=== PATIENT | female | born 1970 | race Caucasian/White ===

== ENCOUNTER 2018-09-03 08:23 | Day surgery (SDC) | payer BC, SELFPAY ==
[2018-09-03 08:39] VITALS: BP 103/81; PULSE 92; RESP 14; TEMP 36.6; O2SAT 97; BMI 25.9
[2018-09-03 09:50] VITALS: BP 103/81; BP 96/61; PULSE 78; RESP 16; TEMP 36.2; O2SAT 99
--- NOTE | 2018-09-03 09:53 | OP.ENDO_ITS ---
Patient Name: Shanna Kaur Procedure Date: 09/03/2018 9:15 AM Date of : 1970 Age: 48 Procedure: Colonoscopy Indications: High risk colon cancer surveillance: Personal history of colonic polyps Providers: Vitor Lee MD Referring MD: Simi Ray Medicines: See the Anesthesia note for documentation of the administered medications Patient Profile: This is a 48 year old female. Refer to note in patient chart for documentation of history and physical. Last Colonoscopy: 10 years ago. Complications: No immediate complications. Procedure: Pre-Anesthesia Assessment: - Prior to the procedure, a History and Physical was performed, and patient medications and allergies were reviewed. The patient's tolerance of previous anesthesia was also reviewed. The risks and benefits of the procedure and the sedation options and risks were discussed with the patient. All questions were answered, and informed consent was obtained. Prior Anticoagulants: The patient has taken no previous anticoagulant or antiplatelet agents. ASA Grade Assessment: II - A patient with mild systemic disease. After reviewing the risks and benefits, the patient was deemed in satisfactory condition to undergo the procedure. After I obtained informed consent, the scope was passed under direct vision. Throughout the procedure, the patient's blood pressure, pulse, and oxygen saturations were monitored continuously. The adult colonoscope was introduced through the anus and advanced to the cecum, identified by appendiceal orifice and ileocecal valve. The colonoscopy was performed without difficulty. The patient tolerated the procedure well. The quality of the bowel preparation was good. Scope In: 9:29:27 AM Scope Withdrawal Time 0 hours 6 minutes 17 seconds Scope Out: 9:45:28 AM Total Procedure Duration Time 0 hours 16 minutes 1 second Findings: Non-bleeding internal hemorrhoids were found during retroflexion. The hemorrhoids were mild and small. A few small-mouthed diverticula were found in the sigmoid colon. The exam was otherwise without abnormality. Impression: - Non-bleeding internal hemorrhoids. - Diverticulosis in the sigmoid colon. - The examination was otherwise normal. - No specimens collected. Recommendation: - Discharge patient to home. - Resume previous diet. - Continue present medications. - Repeat colonoscopy in 10 years for screening purposes. - Return to primary care physician PRN. Procedure Code(s): --- Professional --- 39590, Colonoscopy, flexible; diagnostic, including collection of specimen(s) by brushing or washing, when performed (separate procedure) Diagnosis Code(s): --- Professional --- Z86.010, Personal history of colonic polyps K64.8, Other hemorrhoids K57.30, Diverticulosis of large intestine without perforation or abscess without bleeding CPT copyright 2017 [employer]. All rights reserved. The codes documented in this report are preliminary and upon social work case manager review may be revised to meet current compliance requirements. MD Vitor Simmons MD 09/03/2018 9:52:27 AM This report has been signed electronically. Number of Addenda: 0 Note Initiated On: 09/03/2018 9:15 AM
--- NOTE | 2018-09-03 09:54 | PCM.HP.STD ---
Problem List (1) Personal history of colonic polyps Status: Acute History of Present Illness Date of Admission: 09/03/18 The patient is a 48 year old F with a history of colonic polyps who presents for a colonoscopy. Past Medical History Allergies No Known Allergies Allergy (Verified 09/02/18 09:15) Home Medications: Ambulatory Orders Medication Instructions Recorded Duloxetine Hcl [Cymbalta] 60 mg PO DAILY 06/20/15 Cholecalciferol (Vitamin D3) 5,000 unit PO DAILY 09/02/18 [Vitamin D3] Levothyroxine Sodium [Levoxyl] 50 mcg PO DAILY 09/02/18 Smoking Status: Never smoker Tobacco Use: Non-smoker - *Family History Maternal History Items: No pertinent history Review of Systems Cardiovascular: Denies: Chest Pain, Chest Pressure, Chest Tightness, Palpitations Respiratory: Denies: Cough, Hemoptysis, Shortness of breath at rest, Shortness of breath upon exertion, Wheezing Gastrointestinal: Denies: Abdominal Pain, Constipation, Diarrhea, Hematemesis, Nausea, Melena, Vomiting VTE Information - Inpt Only VTE Present on Admission: No VTE Mechan Device Prophylaxis: None VTE Pharm Prophylaxis ordered?: No Reason prophylaxis not ordered:: Treatment Not Indicated Patient Problems: Active and Suspected Problems Personal history of colonic polyps (Acute) - Physical Exam General: Alert, Oriented x3 Lungs: Clear to auscultation Cardiovascular: Regular rate, Regular Rhythm, No murmurs Abdomen: Bowel Sounds Present, Soft, Non Tender, Non-Distended Vital Signs Temp Pulse Resp BP Pulse Ox 97.2 F L 78 16 96/61 99 09/03/18 09:50 09/03/18 09:50 09/03/18 09:50 09/03/18 09:50 09/03/18 09:50 Oxygen Delivery Method Room Air Weight: 137 lb 2.04 oz Body Mass Index (BMI) 25.9 Assessment/Plan All Active Problems Personal history of colonic polyps (Acute) And will be to perform a colonoscopy on the patient.
[2018-09-03 09:55] VITALS: BP 103/81; BP 99/63; PULSE 78; RESP 16; O2SAT 98
[2018-09-03 10:00] VITALS: BP 100/65; BP 103/81; PULSE 72; RESP 16; O2SAT 99
[2018-09-03 10:08] VITALS: BP 103/81; BP 96/64; PULSE 74; RESP 16; TEMP 36.9; O2SAT 100
[2018-09-03 10:28] VITALS: BP 103/81
== END 2018-09-03 10:35 | disposition home or self-care (01) ==
LOC: EN 08:23 → AC 08:26
PROVIDERS: Family Provider Internal Medicine; PCP Internal Medicine; Referring Provider Surgery; Visit Provider Surgery
PROC: 0DJD8ZZ Inspection of Lower Intestinal Tract, Via Natural or Artificial Opening Endoscopic (ICD-10-PCS; CPT 45378; principal; 2018-09-03 09:25)
DX: K64.8 Other hemorrhoids (principal); K57.30 Diverticulosis of large intestine without perforation or abscess without bleeding; Z86.010 Personal history of colon polyps; F32.9 Major depressive disorder, single episode, unspecified; E06.9 Thyroiditis, unspecified; I49.3 Ventricular premature depolarization; Z79.899 Other long term (current) drug therapy
CPT/HCPCS: 45378; J7120; J1610

== ENCOUNTER → 2019-02-19 08:42 | Outpatient (CLI) | payer BC, SELFPAY ==
--- NOTE | 2019-02-19 08:45 | BI_ITS ---
MAMMOGRAPHY - BILATERAL SCREENING REASON FOR EXAM: Female, 49 years old. Routine annual screening examination. PERTINENT HISTORY: Bilateral breast tenderness. TECHNIQUE: Digital bilateral breast eber (3D mammographic acquisition) in the CC and MLO projections. 2-D mediolateral oblique (MLO) and craniocaudad (CC) views of both breasts were obtained. CAD: Full Field Digital Mammography with Computer Added Detection was performed. COMPARISON: Comparison is made with prior study dated April 01, 2017 and March 26, 2016. FINDINGS: Breast Composition: There are scattered areas of fibroglandular density. There are no dominant masses or suspicious calcifications. Benign-appearing small bilateral axillary lymph nodes. No other significant abnormalities are identified. There has been no significant change since the prior study. BI/SCREEN MAMM (CAD) W/EBER BILAT IMPRESSION: Stable bilateral screening mammogram. Yearly follow-up mammogram recommended. (A) ASSESSMENT CATEGORY: BIRADS Category 2: Benign. A letter regarding these results will be sent to the patient by the facility within 30 days. Approximately 10% of breast cancers are not detected by mammography. A normal mammogram should not delay biopsy of a clinically suspicious abnormality. [id number] Electronically Signed: Noah Tucker, at 8:57 EDT , Service support ,
== END ==
PROVIDERS: Family Provider Internal Medicine; PCP Internal Medicine; Referring Provider Internal Medicine; Visit Provider Internal Medicine
DX: Z12.31 Encounter for screening mammogram for malignant neoplasm of breast (principal)
CPT/HCPCS: 77063; 77067

== ENCOUNTER → 2020-09-04 12:38 | Outpatient (CLI) | payer BC, SELFPAY ==
--- NOTE | 2020-09-04 12:40 | BI_ITS ---
MAMMOGRAPHY - BILATERAL SCREENING REASON FOR EXAM: Female, 50 years old. Routine annual screening examination. PERTINENT HISTORY: Non-contributory. TECHNIQUE: Digital bilateral breast eber (3D mammographic acquisition) in the CC and MLO projections. 2-D mediolateral oblique (MLO) and craniocaudad (CC) views of both breasts were obtained. CAD: Full Field Digital Mammography with Computer Added Detection was performed. COMPARISON: Comparison is made with prior study dated 02/19/2019 and 04/01/2017. FINDINGS: Breast Composition: There are scattered areas of fibroglandular density. There are no dominant masses or suspicious calcifications. Stable small benign-appearing bilateral axillary lymph nodes. No other significant abnormalities are identified. There has been no significant change since the prior study. BI/SCREEN MAMM (CAD) W/EBER BILAT IMPRESSION: Stable bilateral screening mammogram. Yearly follow-up mammogram recommended. (A) ASSESSMENT CATEGORY: BIRADS Category 2: Benign. A letter regarding these results will be sent to the patient by the facility within 30 days. Approximately 10% of breast cancers are not detected by mammography. A normal mammogram should not delay biopsy of a clinically suspicious abnormality. [id number] Electronically Signed: Noah Tucker, at 9:09 EST , Service support ,
== END ==
PROVIDERS: PCP Internal Medicine; Referring Provider Internal Medicine; Visit Provider Internal Medicine
DX: Z12.31 Encounter for screening mammogram for malignant neoplasm of breast (principal)
CPT/HCPCS: 77063; 77067

== ENCOUNTER 2021-09-02 15:48 | Emergency (ER) | payer BC, SELFPAY ==
[2021-09-02] VITALS (7 sets, daily range): BP systolic 105–126; BP diastolic 64–79; PULSE 101–119; RESP 16–21; TEMP 35.9–38.4; O2SAT 94–97; BMI 27.6
--- NOTE | 2021-09-02 17:21 | CT_ITS ---
STUDY: CT Abdomen And Pelvis W/ Contrast Injection 09/02/2021 7:53 PM REASON FOR EXAM: Female, 51 years old. ABDOMINAL PAIN post-op fever -- IV PO Contrast TECHNIQUE: Transaxial images were obtained with oral contrast, and with Oral and amp; IV Gastrografin and amp; 100mL Isovue-370 intravenous contrast. Individualized dose optimization techniques were used for this CT. COMPARISON: None. FINDINGS: The visualized lung bases are unremarkable. The visualized portions of the heart are within normal limits. Normal liver. Normal gallbladder and extrahepatic biliary system. Normal spleen. Normal pancreas. Normal bilateral adrenal glands. No acute findings of the right kidney. No acute findings of the left kidney. There is a small hiatal hernia. Normal small intestine. Stool throughout the colon. There is non-visualization of the appendix. There are no acute findings of the abdominal aorta. Normal inferior vena cava. Subcentimeter mesenteric lymph nodes. Normal urinary bladder. Subcutaneous air suggesting recent surgery. The distribution suggests reconstructive surgery. Soft tissue seroma or hematoma overlying the anterior abdominal wall. Normal osseous structures. IMPRESSION: (NOT LISTED IN ORDER OF SIGNIFICANCE) Soft tissue seroma or hematoma overlying the anterior abdominal wall. There are no acute findings. Other findings as above. Electronically Signed: Seven Dumont MD at 19:58 EST , Service support , CT/Abdomen/Pelvis WITH Contrast
--- NOTE | 2021-09-02 17:23 | EDS_ITS ---
HPI History of Present Illness Chief Complaint: Fever Informant: patient Onset/Context/Timing Onset: Days Current Severity: Moderate Maximum Severity: Moderate Narrative Narrative: Patient presents secondary to continued fever and fatigue. She had surgery on August 23 having a tummy tuck performed at [facility]. 2 days later she started to feel ill including lethargy and fevers. Her highest temperature has been 104.0. She states she was on a skin antibiotic after surgery. On the she was seen by her surgeon where her drains were removed. That afternoon she was seen at the [facility] in [place]. Chest x-ray and lab work done at that time. She was switched to Augmentin. In spite of that she continues to have fever. She has noted increased drainage from her wound over the past 3 days. She called her surgeon today who wants to see her in the office tomorrow. [facility] Medical History Hypothyroid Home Medications duloxetine 60 mg PO DAILY 06/20/15 [History Last Taken Unknown] cholecalciferol (vitamin D3) 5,000 unit PO DAILY 09/02/18 [History Last Taken Unknown] levothyroxine [Levoxyl] 50 mcg PO DAILY 09/02/18 [History Last Taken Unknown] amoxicillin-pot clavulanate 1 tab PO BID 09/02/21 [History Last Taken Unknown] ferrous sulfate [FeroSul] 325 mg PO DAILY 09/02/21 [History Last Taken Unknown] Allergy/AdvReac Type Severity Reaction Status Date / Time No Known Allergies Allergy Verified 09/02/21 15:49 Social History Smoking Status: Never smoker ROS ROS ED Constitutional Constitutional ED: Reports chills and fever(s) Eyes Eyes: Denies change in vision ENT ENT ED: Denies sore throat Cardiovascular Cardiovascular: Denies chest pain Respiratory/Chest Respiratory/Chest: Reports cough; Denies dyspnea Gastrointestinal Gastrointestinal: Reports abdominal pain; Denies diarrhea, nausea or vomiting Genitourinary Genitourinary ED: Denies dysuria Musculoskeletal Musculoskeletal: Denies back pain Integumentary Reports other Details: Drainage from surgical wound ; Denies rash Neurologic Neurologic: Denies headache(s) or weakness Allergic/Immunologic Allergic/Immunologic ED: Denies urticaria EXAM Physical Exam Const Vital Signs: 09/02/21 15:49 09/02/21 17:22 09/02/21 17:24 Temperature 96.6 F L 97.8 F Temperature Source Temporal Temporal Pulse Rate 106 H 109 H 107 H Respiratory Rate 16 16 16 Respiratory Effort Normal Non-Labored Respiratory Pattern Normal Blood Pressure 121/72 H 112/79 117/72 Blood Pressure Mean 88 90 87 Pulse Ox 97 97 Oxygen Delivery Method Room Air Room Air Room Air 09/02/21 18:00 09/02/21 19:00 09/02/21 21:00 Temperature 97.8 F 101.1 F H 99.3 F H Temperature Source Temporal Oral Oral Pulse Rate 105 H 119 H 105 H Respiratory Rate 21 H 16 16 Respiratory Effort Respiratory Pattern Blood Pressure 116/78 126/72 H 105/64 Blood Pressure Mean 90 90 77 Pulse Ox 97 96 94 Oxygen Delivery Method Room Air Room Air Room Air Positive well nourished and well developed General Appearance ED: well developed HEENT Reports moist mucous membranes Eyes PERRL and EOMs intact bilaterally Neck supple Chest Wall inspection of chest normal and palpation of chest normal Resp normal respiratory effort and clear to auscultation bilaterally Cardio Rate: tachycardic GI GI Narrative: Lower abdominal wounds with surrounding cellulitis. Mild drainage. Extremity normal to inspection Neuro oriented x3 Sensorium / Orientation: alert MDM MDM MDM Narrative Medical decision making narrative: Lab work, cultures, urinalysis, Covid PCR obtained. CT scan with IV contrast ordered. Lab Data Attestation: I reviewed the patient's lab results. Labs: Laboratory Results - last 24 hr 09/02/21 09/02/21 09/02/21 17:20 17:20 17:20 WBC 9.9 RBC 3.47 L Hgb 9.8 L Hct 30.1 L MCV 86.7 MCH 28.2 MCHC 32.6 RDW Std Deviation 42.5 RDW Coeff of Clarisse 13.6 Plt Count 497 H MPV 8.9 Immature Gran % (Auto) 0.700 Neut % (Auto) 76.3 H Lymph % (Auto) 15.5 L [place] % (Auto) 6.0 Eos % (Auto) 1.2 Baso % (Auto) 0.3 Absolute Neuts (auto) 7.6 Absolute Lymphs (auto) 1.54 Nucleated RBC % 0 Atypical Lymphocytes 1+ Platelet Estimate SLT INC RBC Morphology N CHROM Anisocytosis RARE Sodium 137 Potassium 3.1 L Chloride 101 Carbon Dioxide 27.0 Anion Gap 9 BUN 8 Creatinine 0.67 Estim Creat Clear Calc 76.80 Est GFR (MDRD) Af Amer 119 Est GFR (MDRD) Non-Af 98 BUN/Creatinine Ratio 12.0 Glucose 84 Lactic Acid 1.3 Calcium 8.9 Total Bilirubin 0.30 Direct Bilirubin 0.14 AST 56 H ALT 148 H Alkaline Phosphatase 342 H Total Protein 7.2 Albumin 2.3 L Globulin 4.9 H Urine Color Urine Clarity Urine pH Ur Specific [place] Urine Protein Urine Glucose (UA) Urine Ketones Urine Occult Blood Urine Nitrite Urine Bilirubin Urine Urobilinogen Ur Leukocyte Esterase Urine RBC Urine WBC Ur Squamous Epith Cells Urine Bacteria Urine Mucus Urine Yeast COVID-19 (AMIE) 09/02/21 09/02/21 18:00 18:42 WBC RBC Hgb Hct MCV MCH MCHC RDW Std Deviation RDW Coeff of Clarisse Plt Count MPV Immature Gran % (Auto) Neut % (Auto) Lymph % (Auto) [place] % (Auto) Eos % (Auto) Baso % (Auto) Absolute Neuts (auto) Absolute Lymphs (auto) Nucleated RBC % Atypical Lymphocytes Platelet Estimate RBC Morphology Anisocytosis Sodium Potassium Chloride Carbon Dioxide Anion Gap BUN Creatinine Estim Creat Clear Calc Est GFR (MDRD) Af Amer Est GFR (MDRD) Non-Af BUN/Creatinine Ratio Glucose Lactic Acid Calcium Total Bilirubin Direct Bilirubin AST ALT Alkaline Phosphatase Total Protein Albumin Globulin Urine Color Yellow Urine Clarity Clear Urine pH 6.5 Ur Specific [place] 1.010 Urine Protein Negative Urine Glucose (UA) Normal Urine Ketones Negative Urine Occult Blood 150 H Urine Nitrite Negative Urine Bilirubin Negative Urine Urobilinogen Normal Ur Leukocyte Esterase 100 H Urine RBC 0-5 SEEN Urine WBC 0-5 SEEN Ur Squamous Epith Cells 0 SEEN Urine Bacteria 0 SEEN Urine Mucus 0 SEEN Urine Yeast RARE COVID-19 (AMIE) Not Detected Radiography Chest X-Ray - ED: 1 View, Read by ED Physician and Chronic Changes Diagnostic Testing: Clinical Impression(s) from Imaging Studies Abdomen/Pelvis CT 09/02/21 17:21 Chest X-Ray 09/02/21 17:59 IMPRESSION: No radiographic evidence of acute cardiopulmonary disease. Electronically Signed: Seven Dumont MD at 18:34 EST , Service support , Treatment and Re-Evaluation Comments:: Patient did develop a temperature here to 101. She was given Tylenol. She was given IV fluids. Lab work reveals normal white count with only mild left shift, 76% neutrophils. Chemistry studies significant only for mildly low pota ssium at 3.1. Lactic acid normal at 1.3. Urinalysis shows no sign of infection. Covid PCR test negative. CT scan reveals soft tissue seroma or hematoma overlying the anterior abdominal wall. No other acute findings. This is reviewed with patient and family at bedside. Patient has an appointment with her surgeon tomorrow. We will give her a dose of Zosyn at this time. Lab work and imaging results will be printed for her. CT scan will be put on a disc for her to take to the office with her. At this time she does not meet criteria for sepsis. Nursing staff did come to me and states that when she got to the bathroom she started having quite a bit of drainage from her surgical site. I spoke with the patient's surgeon, Dr. Freitas, and reviewed our work-up and treatment. He did asked that we obtain a culture and sensitivity along the Gram stain of the drainage. He will see her in the office tomorrow. Discharge Plan Triage Chief Complaint: Fever ED Provider: Vanesa Green Dx/Rx/DC Orders Clinical Impression: Postoperative seroma Instructions: ED Seroma, Postsurgical Prescriptions: No Action duloxetine 20 MG capsule 60 mg PO DAILY RF: 0 levothyroxine [Levoxyl] 50 MCG tablet 50 mcg PO DAILY RF: 0 cholecalciferol (vitamin D3) 5,000 UNIT tablet 5,000 unit PO DAILY RF: 0 ferrous sulfate [FeroSul] 325 mg (65 mg iron) tablet 325 mg PO DAILY RF: 0 amoxicillin-pot clavulanate 875-125 mg tablet 1 tab PO BID RF: 0 Primary Care Provider: Simi Ray Referrals: Simi Ray DO [Primary Care Provider] - Activity Restrictions/Additional Instructions: Follow-up with your surgeon tomorrow as planned. Disposition Disposition: Home, Self Care
[2021-09-02 17:35] LABS: Absolute Lymphocyte Count 1.54 X10^3/uL (0.83-4.51); Absolute Neutrophil Count 7.6 X10^3/uL (2.0-7.7); Basophil# 0.03 X10^3/uL; Basophil% 0.3 % (0-1); Eosinophil# 0.12 X10^3/uL; Eosinophils% 1.2 % (0-5); Hematocrit 30.1 % (37-47); Hemoglobin 9.8 g/dL (12.0-15.0); Lymphocyte # 1.54 X10^3/ul (0.83-4.51); Lymphocyte % 15.5 % (19-41); Mean Corp Hgb Conc 32.6 g/dL (32-36); Mean Corpuscular Hgb 28.2 pg (27.0-32.0); Mean Corpuscular Volume 86.7 fL (81-99); Mean Platelet Vol. 8.9 fl (6.2-12.0); Monocyte# 0.59 X10^3/uL; NRBC Flagged by Analyzer 0 % (0-5); Neutrophil # 7.56 X10^3/uL (2.7-7.7); Neutrophil % 76.3 % (47-70); POSITIVE MORPHOLOGY YES; Platelet Count 497 K/mm3 (150-450); RBC Distribution Width CV 13.6 % (11.6-14.6); RBC Distribution Width SD 42.5 fl (35.1-43.9); Red Blood Count 3.47 M/mm3 (4.2-5.4); White Blood Count 9.9 K/mm3 (4.4-11.0)
[2021-09-02 17:38] LABS: Differential Indicated SCAN CRITERIA MET
[2021-09-02 17:55] LABS: AST(SGOT) 56 U/L (15-37); Alanine Aminotransfer ALT/SGPT 148 U/L (13-56); Albumin, Serum 2.3 g/dL (3.2-5.0); Alkaline Phosphatase 342 U/L (45-117); Anion Gap 9 (5-15); BUN 8 mg/dL (7-18); Bilirubin, Direct 0.14 mg/dL (0.00-0.30); Calcium,Total 8.9 mg/dL (8.5-10.1); Chloride 101 mmol/L (98-107); Creatinine, Serum 0.67 mg/dL (0.55-1.02); EST Glomerular Filtration Rate 98 mL/min (>60); Est Glom Filt Rate - Afr Amer 119 mL/min (>60); Globulin 4.9 g/dL (2.2-4.2); Glucose 84 mg/dL (74-106); Lactic Acid 1.3 mmol/L (0.4-1.9); Potassium 3.1 mmol/L (3.5-5.1); Protein, Total 7.2 g/dL (6.4-8.2); Sodium Level 137 mmol/L (136-145)
[2021-09-02 17:57] LABS: Anisocytosis RARE; Atypical Lymphocyte 1+ %; Platelet Estimate SLT INC (ADEQ); Red Cell Morphology N CHROM NORMAL (NORM C&C)
--- NOTE | 2021-09-02 17:59 | RAD_ITS ---
EXAM: XR CHEST, 1 VIEW CLINICAL INDICATION: cough, fever TECHNIQUE: Frontal view of the chest. This report was created using [employer] report generation technology. COMPARISON: None. FINDINGS: LUNGS AND PLEURAL SPACES: Unremarkable. No consolidation or edema. No pneumothorax. No effusion. HEART: Unremarkable. Cardiac silhouette not enlarged. MEDIASTINUM: Central airways and mediastinal contour are unremarkable. BONES/JOINTS: Unremarkable. SOFT TISSUES: Unremarkable. RAD/Chest 1 View (Portable) IMPRESSION: No radiographic evidence of acute cardiopulmonary disease. Electronically Signed: Seven Dumont MD at 18:34 EST , Service support ,
[2021-09-02 18:55] LABS: Bacteria 0 SEEN /hpf (None Seen); Mucous, Urine 0 SEEN /hpf (<or=2+); Squamous Epithelial Cells - UA 0 SEEN /hpf (5-10)
[2021-09-02 19:14] LABS: Color, Urine Yellow (Yellow); Glucose, Dipstick Normal (Normal); Ketone-Dipstick Negative (Negative); Leukocyte Esterase-Dipstick 100 /ul (Negative); Nitrite-Dipstick Negative (Negative); Occult Blood-Urine 150 /ul (Negative); Protein-Dipstick Negative (Negative); Urine Bilirubin Dipstick Negative (Negative); Urine Clarity Clear (Clear); Urine Urobilinogen Normal (Normal); Urine pH 6.5 (5.0 - 8.0)
[2021-09-02 19:30] LABS: Red Blood Cells-Urine 0-5 SEEN /hpf (0-5); White Blood Cells 0-5 SEEN /hpf (0-5); Yeast-Urine RARE /hpf (None Seen)
[2021-09-02] MEDS: Acetaminophen 500 MG Tablet 1000 MG PO (20:03)
== END 2021-09-02 22:54 | disposition home or self-care (01) ==
PROVIDERS: Emergency Provider Emergency Medicine; PCP Internal Medicine
DX: K91.872 Postprocedural seroma of a digestive system organ or structure following a digestive system procedure (principal); E03.9 Hypothyroidism, unspecified; Z79.899 Other long term (current) drug therapy
CPT/HCPCS: 71045; 74177; 80048; 80076; 81001; 83605; 85025; 87070; 87077; 87186; 87205; 87635; 96361; 96365; 99285; J7050; Q9967; U0005; A4216; U0003

== ENCOUNTER → 2022-05-15 | Outpatient (CLI) | payer BC, SELFPAY ==
--- NOTE | 2022-05-15 16:23 | BI_ITS ---
MAMMOGRAPHY - BILATERAL SCREENING REASON FOR EXAM: Female, 52 years old. Routine annual screening examination. PERTINENT HISTORY: Non-contributory. TECHNIQUE: Digital bilateral breast eber (3D mammographic acquisition) in the CC and MLO projections. 2-D mediolateral oblique (MLO) and craniocaudad (CC) views of both breasts were obtained. CAD: Full Field Digital Mammography with Computer Added Detection was performed. COMPARISON: Comparison is made with prior study dated 09/04/2020 and 02/19/2019. FINDINGS: Breast Composition: There are scattered areas of fibroglandular density. There are no dominant masses or suspicious calcifications. Stable small benign-appearing bilateral axillary lymph nodes. No other significant abnormalities are identified. There has been no significant change since the prior study. BI/SCRN MAMM (CAD)W/EBER BILAT IMPRESSION: Stable bilateral screening mammogram. Yearly follow-up mammogram recommended. (A) ASSESSMENT CATEGORY: BIRADS Category 2: Benign. A letter regarding these results will be sent to the patient by the facility within 30 days. Approximately 10% of breast cancers are not detected by mammography. A normal mammogram should not delay biopsy of a clinically suspicious abnormality. [id number] Electronically Signed: Noah Tucker MD at 8:38 EDT ,
== END | disposition home or self-care (01) ==
LOC: OPBI 05-16 07:31
PROVIDERS: PCP Internal Medicine; Visit Provider Internal Medicine
DX: Z12.31 Encounter for screening mammogram for malignant neoplasm of breast (principal)
CPT/HCPCS: 77063; 77067

== ENCOUNTER → 2022-11-03 | Outpatient (CLI) | payer SELFPAY, BC ==
--- NOTE | 2022-11-03 18:30 | US_ITS ---
INDICATION: thyroid nodule -- thyroid nodule EXAMINATION: Ultrasound US Thyroid (eg thyroid, parathyroid, parotid) TECHNIQUE: Solis scale and color doppler imaging was performed of the thyroid gland. COMPARISON: 03/30/2017 FINDINGS: RIGHT THYROID LOBE: 4.4 x 1.2 x 1.5 cm. Homogeneous echotexture with normal vascularity. 2 colloid cysts measure up to 5 mm. LEFT THYROID LOBE: 3.6 x 1.1 x 0.9 cm. Homogeneous echotexture with normal vascularity. 4 mm cyst. ISTHMUS: 1 mm. No thyroid nodules are present. US/Thyroid IMPRESSION: The largest thyroid nodule is a right-sided colloid cyst measuring up to 5 mm. This is decreased compared to 7 mm on 03/30/2017. Electronically Signed: Tyler Culp MD at 19:50 EST ,
== END | disposition home or self-care (01) ==
LOC: US 18:28
PROVIDERS: PCP Internal Medicine; Visit Provider Internal Medicine
DX: E04.1 Nontoxic single thyroid nodule (principal)
CPT/HCPCS: 76536

== ENCOUNTER → 2024-06-10 | Outpatient (CLI) | payer OTHER, SELFPAY ==
--- NOTE | 2024-06-10 12:33 | BI_ITS ---
MAMMOGRAPHY - BILATERAL SCREENING REASON FOR EXAM: Female, 54 years old. Routine annual screening examination. PERTINENT HISTORY: Non-contributory. TECHNIQUE: Digital bilateral breast eber (3D mammographic acquisition) in the CC and MLO projections. 2-D mediolateral oblique (MLO) and craniocaudad (CC) views of both breasts were obtained. CAD: Full Field Digital Mammography with Computer Added Detection was performed. COMPARISON: Comparison is made with prior study dated May 15, 2022 and September 04, 2020. FINDINGS: Breast Composition: The breasts are almost entirely fatty. There are no dominant masses or suspicious calcifications. Stable small benign-appearing bilateral axillary lymph nodes. No other significant abnormalities are identified. There has been no significant change since the prior study. BI/SCRN MAMM (CAD)W/EBER BILAT IMPRESSION: Stable bilateral screening mammogram. Yearly follow-up mammogram recommended. (A) ASSESSMENT CATEGORY: BIRADS Category 2: Benign. A letter regarding these results will be sent to the patient by the facility within 30 days. Approximately 10% of breast cancers are not detected by mammography. A normal mammogram should not delay biopsy of a clinically suspicious abnormality. [id number] Electronically Signed: Noah Tucker MD at 13:15 EDT ,
--- NOTE | 2024-06-10 12:33 | BD_ITS ---
STUDY: DUAL ENERGY X-RAY ABSORPTIOMETRY / DXA REASON FOR EXAM: Female, 54 years old. 627.8Menopausal postmenopausalBONE DENSITY REASON FOR EXAM TECHNIQUE: Bone Mineral Density (BMD) measurements of lumbar spine and bilateral hips were obtained. COMPARISON: Comparison is made with prior study April 01, 2017. FINDINGS: Lumbar Spine (L1-L4): g/cm2 (0.871) / T-score (-1.7) / Z-score (-0.5) Findings are suggestive of osteopenia with a moderate fracture risk. Left Femur Total: g/cm2 (0.754) / T-score (-1.5) / Z-score (-0.8) Left Femoral Neck: g/cm2 (0.672) / T-score (-1.6) / Z-score (-0.5) Right Femur Total: g/cm2 (0.735) / T-score (-1.7) / Z-score (-0.9) Right Femoral Neck: g/cm2 (0.658) / T-score (-1.7) / Z-score (-0.6) The T-Scores on the most recent prior examination were: Lumbar Spine (L1-L4): There has been worsening of bone density since the previous examination. Left Femur Total: which represents a worsening of 17.2%. Right Femur Total: which represents a worsening of 18.7%. BD/Dexa Bone Density Study IMPRESSION: The patient is considered osteopenic as outlined below according to World [employer] Organization (WHO) criteria with a moderate fracture risk. There has been worsening of bone density since the previous examination. Reference Information: The T-score is the number of standard deviations above or below the standard which is normal for young adults at their peak bone mineral density. The World Health Organization (WHO) interprets the T-scores as follows: Above -1 Normal bone density Between -1 and -2.5 Osteopenia Equal to / or below -2.5 Osteoporosis As a practical clinical guideline, osteopenia may be graded as follows: Mild -1 through -1.5 Moderate -1.6 through -2.0 Severe -2.1 through -2.4 The Z-score is the number of standard deviations above or below age-matched controls. A Z-score of less than -1.5 would be considered abnormal. References: 1. NIH Osteoporosis and Related Bone Diseases www osteo.org 2. International Society for Clinical Densitometry www iscd.org 3. National Osteoporosis Foundation www nof.org Electronically Signed: Noah Tucker MD at 12:35 EDT ,
== END | disposition home or self-care (01) ==
PROVIDERS: PCP Internal Medicine; Referring Provider Internal Medicine; Visit Provider Internal Medicine
DX: Z12.31 Encounter for screening mammogram for malignant neoplasm of breast (principal); Z78.0 Asymptomatic menopausal state
CPT/HCPCS: 77063; 77067; 77080